=== PATIENT | male | born 1980 | race Caucasian/White ===

== ENCOUNTER → 2021-05-24 | Emergency (ER) | payer OTHER ==
[~2021-05-24] VITALS: Ht 185.4 cm; Wt 117.9 kg
== END | disposition left against medical advice (07) ==
LOC: ER 05:57
DX: R20.2 Paresthesia of skin (principal); F43.8 Other reactions to severe stress; F06.4 Anxiety disorder due to known physiological condition

== ENCOUNTER 2025-03-31 13:46 | Emergency (ER) | payer OTHER ==
[~2025-03-31] VITALS: Ht 188 cm; Wt 108.9 kg
[2025-03-31] MEDS ORDERED: XANAX1 MG PO (14:36)
== END 2025-03-31 15:50 | disposition home or self-care (01) ==
LOC: ER 13:46
DX: F41.9 Anxiety disorder, unspecified (principal); Z91.018 Allergy to other foods

== ENCOUNTER 2025-05-03 05:29 | Emergency (ER) | payer OTHER ==
[~2025-05-03] VITALS: Ht 185.4 cm; Wt 108.9 kg
[~2025-05-03 05:29] MED LIST: XANAX1 MG PO
[2025-05-03 05:39] VITALS: BP 116/76; O2SAT 97
[2025-05-03] MEDS ORDERED: HYDROXYZINE PAM50 MG PO (06:37)
== END 2025-05-03 06:44 ==
LOC: ER 05:57
DX: G47.00 Insomnia, unspecified (principal); F41.9 Anxiety disorder, unspecified; Z91.018 Allergy to other foods